=== PATIENT | male | born 1965 | race Caucasian/White ===

== ENCOUNTER 2017-01-23 12:33 | Emergency (ER) | payer BC ==
[2017-01-23 13:02] VITALS: BP 153/87; PULSE 84; RESP 18; TEMP 98
[2017-01-23] MEDS ORDERED: CLINDAMYCIN 150 MG CAP PO STA (13:36)
--- NOTE | 2017-01-23 13:36 | ED ---
General Adult HPI - General Chief complaint: Dental/Oral Stated complaint: Facial Swelling Time Seen by Provider: 01/23/17 13:15 Source: patient, RN notes reviewed Mode of arrival: ambulatory Limitations: no limitations - History of Present Illness Initial comments: 51-year-old male presents to emergency 5 chief complaint of left-sided facial swelling. Patient admits to a long history of dental problems and states she was recently placed on amoxicillin a few days ago and then they switched azithromycin the next day and he continues to have this facial swelling. Patient has been pain opening closing mouth. Patient denies difficulty closing mouth. He denies any pain to the back and he had fever chills. Patient states it just does not seem he still having a dental pain to the left upper teeth. He is scheduled to have them removed on Thursday. Patient states he hasn't had any other symptoms with this. Patient was concerned due to this findings they thought that he should be evaluated. Patient denies any recent fever, chills, shortness of breath, chest pain, back pain, abdominal pain, nausea vomiting, numbness or tingling, dysuria or hematuria, constipation or diarrhea, headaches or visual changes, or any other current symptoms. - Related Data Previous Rx's Medication Instructions Recorded Ipratropium/Albuterol Sulfate 2 puff INHALATION QID #1 inhaler 02/24/14 [Combivent Respimat Inhaler] predniSONE 20 mg PO BID #14 tab 02/24/14 Clindamycin [Cleocin] 450 mg PO Q8HR #90 capsule 01/23/17 Allergies Allergy/AdvReac Type Severity Reaction Status Date / Time No Known Allergies Allergy Verified 01/23/17 13:02 Review of Systems ROS Statement: Those systems with pertinent positive or pertinent negative responses have been documented in the HPI. ROS Other: All systems not noted in ROS Statement are negative. Past Medical History Past Medical History: COPD History of Any Multi-Drug Resistant Organisms: None Reported Past Surgical History: Cholecystectomy Additional Past Surgical History / Comment(s): cyst removed from hand Past Psychological History: No Psychological Hx Reported Smoking Status: Current every day smoker Past Alcohol Use History: None Reported Past Drug Use History: None Reported General Exam Limitations: no limitations General appearance: alert, in no apparent distress Head exam: Present: other (Patient appears to have swelling Under the left eye to the left cheek) Eye exam: Present: normal appearance, PERRL, EOMI. Absent: scleral icterus, conjunctival injection, periorbital swelling ENT exam: Present: normal exam, mucous membranes moist, other (Recorded dentition throughout, no abscess noted) Neck exam: Present: normal inspection. Absent: tenderness, meningismus, lymphadenopathy Respiratory exam: Present: normal lung sounds bilaterally. Absent: respiratory distress, wheezes, rales, rhonchi, stridor Cardiovascular Exam: Present: regular rate, normal rhythm, normal heart sounds. Absent: systolic murmur, diastolic murmur, rubs, gallop, clicks Neurological exam: Present: alert, oriented X3 Psychiatric exam: Present: normal affect, normal mood Skin exam: Present: warm, dry, intact, normal color. Absent: rash Course Vital Signs 01/23/17 13:00 Temperature 98.0 F Pulse Rate 84 Respiratory 18 Rate Blood Pressure 153/87 O2 Sat by Pulse 97 Oximetry Medical Decision Making - Medical Decision Making 51-year-old male presents for left-sided dental caries. This time we will start patient clindamycin. Discussed follow-up with his dentist we discussed care. We discussed return members in questions have been answered. He stated he understood and is in agreement with the plan. All questions have been answered at this time. He will be discharged home. Disposition Clinical Impression: Dental caries Disposition: HOME SELF-CARE Condition: Stable Instructions: Dental Caries (ED) Additional Instructions: Please use medication as discussed. Please follow up with family doctor if symptoms have not improved over the next two days. Please return to the emergency room if your symptoms increase or worsen or for any other concerns. Prescriptions: Clindamycin [Cleocin] 450 mg PO Q8HR #90 capsule Referrals: Elin Olson DO [Primary Care Provider] - 1-2 days Time of Disposition: 13:35
== END 2017-01-23 14:05 | disposition home or self-care (01) ==
LOC: EC 12:33
DX: K02.9 Dental caries, unspecified (principal); R22.0 Localized swelling, mass and lump, head; F17.200 Nicotine dependence, unspecified, uncomplicated
CPT/HCPCS: 99283

== ENCOUNTER 2017-02-06 09:15 | Day surgery (SDC) | payer BC ==
[2017-02-03 15:17] VITALS: BMI 26.9
[~2017-02-06 09:15] MED LIST: LACTATED RINGERS 1,000 ML IV SCH
[2017-02-06 10:37] VITALS: RESP 16; TEMP 97.2
[2017-02-06] MEDS ORDERED: LIDOCAINE 1% 20 ML VIAL (10MG/ML) FOR IV START INTRADERMA ONE (10:44)
[2017-02-06] MEDS ORDERED: MIDAZOLAM 2 MG/2 ML VIAL ONE (12:03)
[2017-02-06] MEDS ORDERED: PROPOFOL 10 MG/ML 20 ML VIAL IV ONE (12:03)
--- NOTE | 2017-02-06 12:11 | P.GSHP ---
History of Present Illness H&P Date: 02/06/17 Chief Complaint: Screening colonoscopy This a 51-year-old male referred from Elin Olson. Patient rents today for screening colonoscopy. Past Medical History Past Medical History: COPD History of Any Multi-Drug Resistant Organisms: None Reported Past Surgical History: Cholecystectomy Additional Past Surgical History / Comment(s): CYST REMOVED FROM RT HAND Past Anesthesia/Blood Transfusion Reactions: No Reported Reaction Smoking Status: Current every day smoker - Past Family History Father Family Medical History: Cancer Medications and Allergies Home Medications Medication Instructions Recorded Confirmed Type Clindamycin [Cleocin] 450 mg PO Q8HR #90 capsule 01/23/17 02/06/17 Rx Allergies Allergy/AdvReac Type Severity Reaction Status Date / Time No Known Allergies Allergy Verified 02/06/17 10:32 Surgical - Exam Vital Signs Temp Pulse Resp BP Pulse Ox 97.2 F L 67 16 143/88 97 02/06/17 10:36 02/06/17 10:36 02/06/17 10:36 02/06/17 10:36 02/06/17 10:36 - General well developed, no distress - Eyes PERRL - ENT normal pinna - Neck no masses - Respiratory normal expansion - Cardiovascular Rhythm: regular - Abdomen Abdomen: soft, non tender Assessment and Plan Plan: We'll perform screening colonoscopy.
--- NOTE | 2017-02-06 12:23 | P.OP ---
Date of Procedure: 02/06/17 Preoperative Diagnosis: Screening colonoscopy Postoperative Diagnosis: Diverticulosis Procedure(s) Performed: Colonoscopy Implants: Anesthesia: MAC Surgeon: Abiodun Lopez Pathology: none sent Condition: stable Disposition: PACU Indications for Procedure: Operative Findings: Description of Procedure: The patient's placed on the endoscopy table in the lateral position. He received IV sedation. Digital rectal exam was performed which revealed no abnormalities. The prostate was symmetric without nodules. The flexible colonoscope was then placed patient anus passed rotator colon. The ileocecal valve was visualized. Cecum, ascending and transverse colon appeared normal. In the descending and sigmoid colon there were diverticular changes. There is no evidence of diverticulitis. Scope was then brought back the rectum and this appeared normal. Scope was withdrawn for patient.
[2017-02-06 12:54] VITALS: BP 145/92; PULSE 77
== END 2017-02-06 13:03 | disposition home or self-care (01) ==
LOC: ORWHC2ENDO 09:15
PROVIDERS: ATTEND Surgery
DX: Z12.11 Encounter for screening for malignant neoplasm of colon (principal); K57.30 Diverticulosis of large intestine without perforation or abscess without bleeding; J44.9 Chronic obstructive pulmonary disease, unspecified; F17.200 Nicotine dependence, unspecified, uncomplicated; Z79.2 Long term (current) use of antibiotics
CPT/HCPCS: J2250; J2704; G0121

== ENCOUNTER 2017-11-28 10:17 | Emergency (ER) | payer BC, OTHER ==
[2017-11-28 10:23] VITALS: BP 164/111; PULSE 90; RESP 18; TEMP 98.3
== END 2017-11-28 10:45 | disposition home or self-care (01) ==
LOC: EC 10:17

== ENCOUNTER 2018-07-05 13:11 | Emergency (ER) | payer BC ==
[2018-07-05 13:24] VITALS: TEMP 97.9
--- NOTE | 2018-07-05 14:59 | ED ---
General Adult HPI - General Chief complaint: Back Pain/Injury Stated complaint: back pain Time Seen by Provider: 07/05/18 13:54 Source: patient, RN notes reviewed, old records reviewed Mode of arrival: ambulatory Limitations: no limitations - History of Present Illness Initial comments: 50-year-old male patient passed no history of reported lumbar disc herniation/ chronic lumbar back pain, COPD presents to ED with acute back pain. Patient reports that this morning when he went to bend over to tie his shoes prior to going to work he felt a reported "snap" in his lumbar spine. Patient states that he then began to have pain in his lumbar spine. Patient states that he has had waxing and waning chronic back pain for approximately 20 years, denies any surgeries on his back. Patient denies any acute loss of bowel or bladder control, denies any fevers chills, denies history of IV drug use patient denies any new onset weakness, paresthesias. Systemic: Pt denies fatigue, fever/chills, rash. Pt denies weakness, night sweats, weight loss. Neuro: Pt denies headache, visual disturbances, syncope or pre-syncope. HEENT: Pt denies ocular discharge or irritation, otalgia, rhinorrhea, pharyngitis or notable lymphadenopathy. Cardiopulmonary: Pt denies chest pain, SOB, heart palpitations, dyspnea on exertion. Abdominal/GI: Pt denies abdominal pain, n/v/d. : Pt denies dysuria, burning w/ urination, frequency/urgency. Denies new onset urinary or bowel incontinence. MSK: Pt denies loss of strength or function in extremities. Neuro: Pt denies new onset weakness, paresthesias. - Related Data Previous Rx's Medication Instructions Recorded Clindamycin [Cleocin] 450 mg PO Q8HR #90 capsule 01/23/17 Aspirin [Adult Low Dose Aspirin EC] 81 mg PO Q24HR 30 Days #30 07/05/18 tablet. amLODIPine [Norvasc] 5 mg PO DAILY 30 Days #30 tab 07/05/18 Allergies Allergy/AdvReac Type Severity Reaction Status Date / Time No Known Allergies Allergy Verified 07/05/18 13:24 Review of Systems ROS Statement: Those systems with pertinent positive or pertinent negative responses have been documented in the HPI. ROS Other: All systems not noted in ROS Statement are negative. Past Medical History Past Medical History: COPD History of Any Multi-Drug Resistant Organisms: None Reported Past Surgical History: Cholecystectomy Additional Past Surgical History / Comment(s): cyst removed from hand Past Psychological History: No Psychological Hx Reported Smoking Status: Current every day smoker Past Alcohol Use History: None Reported Past Drug Use History: Marijuana General Exam - General Exam Comments Initial Comments: Constitutional: NAD, AOX3, Pt has pleasant affect. HEENT: NC/AT, trachea midline, neck supple, no lymphadenopathy. Posterior pharynx non erythematous, without exudates. External ears appear normal, without discharge. Mucous membranes moist. Eyes PERRLA, EOM intact. There is no scleral icterus. No pallor noted. Cardiopulmonary: RRR, no murmurs, rubs or gallops, no JVD noted. Lungs CTAB in anterior and posterior darling. No peripheral edema. Abdominal exam: Abdomen soft and non-distended. Abdomen non-tender to palpation in all 4 quadrants. Bowel sounds active in LLQ. No hepatosplenomegaly. No ecchymosis Neuro: CN II-XII grossly intact. No nuchal rigidity. MSK: No cervical thoracic spinal or para spinal tenderness. Patient does have some midline mild lumbar back tenderness. No paralumbar tenderness. 5/5 strength in psoas and quadriceps. No posterior calf tenderness bilaterally, homans sign negative bilaterally. Posterior tibialis and radial pulse +1 bilaterally. Capillary refill <2 seconds. Sensation intact in upper and lower extremities. Pt ambulatory without difficulty. Limitations: no limitations Course Vital Signs 07/05/18 07/05/18 07/05/18 13:20 15:46 16:31 Temperature 97.9 F Pulse Rate 81 74 71 Respiratory 18 18 18 Rate Blood Pressure 153/99 174/99 178/97 O2 Sat by Pulse 99 98 98 Oximetry 07/05/18 07/05/18 07/05/18 17:00 17:27 18:15 Temperature Pulse Rate 71 67 65 Respiratory 18 18 18 Rate Blood Pressure 146/94 150/94 166/103 O2 Sat by Pulse 98 98 96 Oximetry 07/05/18 20:38 Temperature Pulse Rate 76 Respiratory 20 Rate Blood Pressure 168/111 O2 Sat by Pulse 96 Oximetry Medical Decision Making - Medical Decision Making 50-year-old male patient passed no history of reported lumbar disc herniation/ chronic lumbar back pain, COPD presents to ED with acute back pain. Patient reports that this morning when he went to bend over to tie his shoes prior to going to work he felt a reported "snap" in his lumbar spine. Patient states that he then began to have pain in his lumbar spine. Patient states that he has had waxing and waning chronic back pain for approximately 20 years, denies any surgeries on his back. Patient denies any acute loss of bowel or bladder control, denies any fevers chills, denies history of IV drug use patient denies any new onset weakness, paresthesias. Physical exam displayed: No cervical thoracic spinal or para spinal tenderness. Patient does have some midline mild lumbar back tenderness. No paralumbar tenderness. 5/5 strength in psoas and quadriceps. No posterior calf tenderness bilaterally, homans sign negative bilaterally. Posterior tibialis and radial pulse +1 bilaterally. Sensation intact in upper and lower extremities. Pt ambulatory without difficulty. Capillary refil <[address] revealed age-indeterminate compression fracture T12 vertebral body with 30% height loss and no retropulsion. Patient is not tender in this region. CT also revealed mild multilevel degenerative changes and lumbar spine, right paracentral disc herniation is suspected. Focal chronic dissection flap abdominal aorta seen at level above the renal arteries. Laboratory investigation revealed mild leukocytosis of 13, non-impressive CMP. Findings were explained patient in depth. Patient vital signs revealed initial mild hypertension which regressed to blood pressure 170s over 90s. Patient administered labetalol. Patient became normotensive. CT of thoracic aortic contrast was conducted. This revealed severe atherosclerotic changes in the infrarenal abdominal aorta with complete occlusion of the left common iliac artery noted. Patient became mildly hypertensive again, wasn't administered another dose of labetalol. Findings explained toPatient at length. Patient verbalizes understanding. Dr. Owens vascular surgeon was contacted by Dr. Severino Noonan attending physician. Recommendation was made for outpatient follow-up on Thursday. No anticoagulation. Pt verbalized understanding. Pt additionally referred to orthopedic surgeon for outpatient follow up. Pt verbalized understanding. Pt became mildly hypertensive again, was advised to stay funtil further control. Pt declined and left. Pt was discharged with amlodipine 5 mg, daily ASA. Patient to follow up with outpatient appointments as directed. Patient to follow with PCP in 1-2 days for continued management of blood pressure. Patient to return to ED if descends symptoms develop or if condition worsens in any way. Case discussed in depth with Dr. Noonan - Lab Data Result diagrams: 07/05/18 16:41 07/05/18 16:41 Lab Results 07/05/18 07/05/18 Range/Units 16:41 16:41 WBC 13.2 H (3.8-10.6) k/uL RBC 5.41 (4.30-5.90) m/uL Hgb 16.1 (13.0-17.5) gm/dL Hct 48.4 (39.0-53.0) % MCV 89.5 (80.0-100.0) fL MCH 29.7 (25.0-35.0) pg MCHC 33.2 (31.0-37.0) g/dL RDW 12.8 (11.5-15.5) % Plt Count 195 (150-450) k/uL Neutrophils % (Manual) 56 % Lymphocytes % (Manual) 38 % Monocytes % (Manual) 3 % Eosinophils % (Manual) 3 % Neutrophils # (Manual) 7.39 (1.3-7.7) k/uL Lymphocytes # (Manual) 5.02 H (1.0-4.8) k/uL Monocytes # (Manual) 0.40 (0-1.0) k/uL Eosinophils # (Manual) 0.40 (0-0.7) k/uL Nucleated RBCs 0 (0-0) /100 WBC Manual Slide Review Performed Reactive Lymphocytes Present RBC Morphology Normal Sodium 137 (137-145) mmol/L Potassium 4.6 (3.5-5.1) mmol/L Chloride 105 (98-107) mmol/L Carbon Dioxide 22 (22-30) mmol/L Anion Gap 10 mmol/L BUN 13 (9-20) mg/dL Creatinine 0.77 (0.66-1.25) mg/dL Est GFR (CKD-EPI)AfAm >90 (>60 ml/min/1.73 sqM) Est GFR (CKD-EPI)NonAf >90 (>60 ml/min/1.73 sqM) Glucose 98 (74-99) mg/dL Calcium 9.4 (8.4-10.2) mg/dL Total Bilirubin 0.6 (0.2-1.3) mg/dL AST 38 (17-59) U/L ALT 13 L (21-72) U/L Alkaline Phosphatase 74 (38-126) U/L Total Protein 7.0 (6.3-8.2) g/dL Albumin 4.2 (3.5-5.0) g/dL Disposition Clinical Impression: Atherosclerosis, Back pain Disposition: HOME SELF-CARE Instructions (If sedation given, give patient instructions): Acute Low Back Pain (ED), Chronic Back Pain (ED) Additional Instructions: Patient to adhere to previously discussed treatment plan and will take medication(s) as directed. Patient to follow up with PCP in 1-2 days. Patient to return to ED if symptoms do not improve. Prescriptions: amLODIPine [Norvasc] 5 mg PO DAILY 30 Days #30 tab Aspirin [Adult Low Dose Aspirin EC] 81 mg PO Q24HR 30 Days #30 tablet.dr Is patient prescribed a controlled substance at d/c from ED?: No Referrals: Elin Olson DO [Primary Care Provider] - 1-2 days Fletcher Owens MD [STAFF PHYSICIAN] - 1-2 days Chad Baca DO [Doctor of Osteopathic Medicine] - 1-2 days Time of Disposition: 20:12
[2018-07-05] MEDS ORDERED: KETOROLAC 60 MG/2 ML VIAL IM STA (15:11)
--- NOTE | 2018-07-05 15:50 | CT ---
EXAMINATION TYPE: CT lumbar spine wo con DATE OF EXAM: 07/05/2018 3:35 PM COMPARISON: None HISTORY: Low back pain after bending over today. CT DLP: 827 mGycm Automated exposure control for dose reduction was used. TECHNIQUE Unenhanced CT of the lumbar spine was performed. Bone and soft tissue window settings are submitted as well as coronal and sagittal reconstructions. FINDINGS: There are right-sided punctate nonobstructing renal calculi. Extensive atherosclerosis is s een of the abdominal aorta and its branches. Crescentic focal suprarenal dissection flap is seen post eriorly on image 30 and 29 above the level of the renal arteries within the abdominal aorta. There is no evidence of acute fracture or malalignment of the lumbar spine. Nonspecific sclerotic foc us is seen within the right iliac bone on image 96 of axial bone algorithm. There is a compression deformity of the T12 vertebral body. No retropulsion. This is approximately 30 % height loss. L1-L2: Normal disc space height. No disc herniation protrusion or central stenosis. No facet joint arthropathy. No evidence for foraminal encroachment. L2-L3: There is a broad-based disc bulge, facet arthropathy and ligamentum flavum buckling resulting in mild bilateral neural foraminal narrowing without spinal canal stenosis on CT. L3-L4: There is a broad-based disc bulge, facet arthropathy and ligamentum flavum buckling resulting in bilateral mild neural foraminal narrowing and suspected mild spinal canal stenosis. L4-L5: There is a broad-based disc bulge, facet arthropathy and ligamentum flavum buckling resulting in bilateral mild neural foraminal narrowing and suspected mild spinal canal stenosis. L5-S1: Vacuum disc disease extends along the posterior margin of the L5-S1 intervertebral disc and po sterior to the S1 vertebral body abutting the ventral thecal sac at this level. Intervertebral disc s pace narrowing is seen at this level as well as small posterior osteophytes and facet arthropathy cre ating moderate bilateral neural foraminal narrowing. No gross evidence of spinal canal stenosis. IMPRESSION: 1. Age indeterminant compression deformity of the T12 vertebral body with 30% height loss and no retr opulsion. No priors for comparison. Correlate with point tenderness to determine the acuity. MR could evaluate for bone marrow edema. 2. Mild multilevel degenerative disc disease of the lumbar spine. Right paracentral disc herniation i s suspected as there is vacuum disc disease extending along the anterior thecal sac at this level. MR could improve sensitivity for disc herniation.
[2018-07-05] MEDS ORDERED: SODIUM CHLORIDE 0.9% 1,000 ML IV STA (16:19)
[2018-07-05] MEDS ORDERED: LABETALOL 5 MG/ML VIAL MDV IVP STA (16:26)
[2018-07-05] MEDS ORDERED: LABETALOL SYRINGE 5 MG/ML IV ONE (17:00)
[2018-07-05 17:11] LABS: ALT 13 U/L (21-72); AST 38 U/L (17-59); Albumin 4.2 g/dL (3.5-5.0); Alkaline Phosphatase 74 U/L (38-126); Anion Gap 10 mmol/L; Blood Urea Nitrogen 13 mg/dL (9-20); Calcium 9.4 mg/dL (8.4-10.2); Carbon Dioxide 22 mmol/L (22-30); Chloride 105 mmol/L (98-107); Glucose 98 mg/dL (74-99); HCT 48.4 % (39.0-53.0); HGB 16.1 gm/dL (13.0-17.5); MCH 29.7 pg (25.0-35.0); MCHC 33.2 g/dL (31.0-37.0); MCV 89.5 fL (80.0-100.0); Mean Platelet Volume 6.6; Platelet Count 195 k/uL (150-450); Potassium 4.6 mmol/L (3.5-5.1); RBC 5.41 m/uL (4.30-5.90); RDW 12.8 % (11.5-15.5); Sodium 137 mmol/L (137-145); Total Bilirubin 0.6 mg/dL (0.2-1.3); WBC 13.2 k/uL (3.8-10.6)
[2018-07-05 17:54] LABS: Lymphocytes # (M) 5.02 k/uL (1.0-4.8); Neutrophils # (M) 7.39 k/uL (1.3-7.7); Neutrophils % (M) 56 %; Nucleated Red Blood Cells 0 /100 WBC (0-0); Reactive Lymphocytes Present; Total Cells Counted 100
[2018-07-05] MEDS ORDERED: LABETALOL SYRINGE 5 MG/ML IVP STA (18:36)
--- NOTE | 2018-07-05 18:44 | CT ---
EXAMINATION TYPE: CT angio thor/abd pel aorta DATE OF EXAM: 07/05/2018 COMPARISON: Same day CT lumbar spine study. HISTORY: Lower back pain CT DLP: 1275.4 mGycm. Automated Exposure Control for Dose Reduction was Utilized. CONTRAST: CTA scan of the thorax, abdomen and pelvis is performed without and with IV Contrast, patient injecte d with 100 mL of Isovue 370. Aneurysm protocol with 3-D reconstructed images created on an [employer] workstation and reviewed. FINDINGS: VASCULAR: Central pulmonary arteries show no suspicious filling defect. Ascending aorta measures up t o 3.9 cm in diameter at axial image 44 level of pulmonary artery bifurcation. There is normal three-v essel origin from aortic arch without significant plaque or stenosis. There is mild noncalcified plaq ue in the descending thoracic aorta. There is patent celiac artery, SMA, and bilateral single renal arteries. Beginning below renal arteri es there is severe mixed calcified and noncalcified plaque concentrically in the aorta with stenosis approaching near 50%. There is complete occlusion of the left common iliac artery at its origin throu gh entire segment with reconstitution shortly after branching into internal and external iliac arteri es. Moderate calcified plaque is seen in these branches and extending into left groin region at the f emoral artery level without significant stenosis identified. There is stenosis approaching near 50% i n the mid right common iliac artery with severe mixed plaque present. Moderate plaque extends into in ternal and external iliac arteries without significant stenosis. Moderate to severe plaque right comm on femoral artery is seen without significant stenosis. No linear hypodensity to suggest dissection i s seen. Patent NOEMI is not identified. LUNGS: Mild to moderate underlying emphysematous change is present most prominent in the lung apices. No suspicious focal consolidation is seen. There is no pleural effusion or pneumothorax seen bilat erally. The tracheobronchial tree is patent. MEDIASTINUM: There are no greater than 1 cm hilar or mediastinal lymph nodes. No cardiomegaly or pe ricardial effusion is seen. Minimal coronary artery calcification is seen which is noted marker for coronary artery disease OTHER: Prominent bilateral subareolar gynecomastia is noted. LIVER/GB: Gallbladder is not visualized and presumed surgically absent. PANCREAS: No significant abnormality is seen. SPLEEN: Heterogeneity of spleen is felt products of arterial timing or imaging. ADRENALS: No significant abnormality is seen. KIDNEYS: No significant abnormality is seen. BOWEL: Incidental normal-appearing appendix from the cecum is present. Evaluation of bowel is subopt imal secondary to lack of enteric contrast. Areas of mild wall thickening are present in left-sided b owel loops presumed product of poor distention. GENITAL ORGANS: Prostate gland is large in size bulging on bladder base. LYMPH NODES: No greater than 1cm abdominal or pelvic lymph nodes are appreciated. OSSEOUS STRUCTURES: Moderate disc space narrowing L5-S1 level is present. Mild multilevel spurring in the thoracic spine is seen. OTHER: No significant additional abnormality is seen. IMPRESSION: 1. Severe atherosclerotic change in the infrarenal abdominal aorta with complete occlusion of the lef t common iliac artery noted.
[2018-07-05] MEDS ORDERED: MORPHINE SULFATE 4 MG/ML SYRINGE IVP STA (19:12)
[2018-07-05] MEDS ORDERED: ONDANSETRON 4 MG/2 ML VIAL IVP STA (19:36)
[2018-07-05] MEDS ORDERED: amLODIPine 5 MG TAB PO STA (20:15)
[2018-07-05 20:39] VITALS: BP 168/111; PULSE 76; RESP 20
== END 2018-07-05 20:55 | disposition home or self-care (01) ==
LOC: EC 13:11
DX: I70.0 Atherosclerosis of aorta (principal); I74.5 Embolism and thrombosis of iliac artery; S22.089A Unspecified fracture of T11-T12 vertebra, initial encounter for closed fracture; I10 Essential (primary) hypertension; M47.896 Other spondylosis, lumbar region; D72.829 Elevated white blood cell count, unspecified; F17.200 Nicotine dependence, unspecified, uncomplicated; Z53.8 Procedure and treatment not carried out for other reasons; X50.1XXA Overexertion from prolonged static or awkward postures, initial encounter; Y92.009 Unspecified place in unspecified non-institutional (private) residence as the place of occurrence of the external cause; Y93.89 Activity, other specified
CPT/HCPCS: 36415; 80053; 85025; 72131; 71275; 74174; 99284; 96374; 96375 ×2; 96376; 96361 ×4; 96372; J2270; J2405; J1885; Q9967

== ENCOUNTER 2018-10-28 02:52 | Emergency (ER) | payer BC ==
[2018-10-28] MEDS ORDERED: KETOROLAC 60 MG/2 ML VIAL IM STA (03:33)
[2018-10-28] MEDS ORDERED: Acetaminophen-Codeine 300-30mg TAB PO STA (03:33)
[2018-10-28] MEDS ORDERED: DIAZEPAM 5 MG TAB PO STA (03:33)
--- NOTE | 2018-10-28 03:35 | ED ---
Back Pain HPI - General Chief Complaint: Back Pain/Injury Stated Complaint: Back pain Time Seen by Provider: 10/28/18 03:12 Source: patient, RN notes reviewed, old records reviewed Limitations: physical limitation - History of Present Illness Initial Comments: This is a 33-year-old male the ER for evaluation. Presents today for evaluation regarding back pain. Pain that began while doing some lifting at some work yesterday. No prior history of trauma. No fevers. No IV drug abuse. No recent travel history or sick contacts. No specific trauma. Patient states he woke up for this morning and had increased pain. The patient has been persistent with no modifying factors for tabletop patient did not take Motrin or Toradol. Patient is able to ambulate but does have pain. No loss of bowel or bladder. MD Complaint: back pain, back injury (Strain sprain) -: hour(s) Similar Symptoms Previously: Yes Place: home Radiation: none Severity: mild Severity scale (1-10): 1 Quality: aching Consistency: constant Improves With: immobilization Worsens With: movement Context: while lifting, turning/twisting Associated Symptoms: denies other symptoms - Related Data Previous Rx's Medication Instructions Recorded Clindamycin [Cleocin] 450 mg PO Q8HR #90 capsule 01/23/17 Aspirin [Adult Low Dose Aspirin EC] 81 mg PO Q24HR 30 Days #30 07/05/18 tablet. amLODIPine [Norvasc] 5 mg PO DAILY 30 Days #30 tab 07/05/18 Allergies Allergy/AdvReac Type Severity Reaction Status Date / Time No Known Allergies Allergy Verified 10/28/18 03:10 Review of Systems ROS Statement: Those systems with pertinent positive or pertinent negative responses have been documented in the HPI. ROS Other: All systems not noted in ROS Statement are negative. Past Medical History Past Medical History: COPD History of Any Multi-Drug Resistant Organisms: None Reported Past Surgical History: Cholecystectomy, Orthopedic Surgery Additional Past Surgical History / Comment(s): cyst removed from hand Past Psychological History: No Psychological Hx Reported Smoking Status: Former smoker Past Alcohol Use History: None Reported Past Drug Use History: None Reported General Exam - General Exam Comments Initial Comments: No neurological deficit Limitations: physical limitation General appearance: alert, in no apparent distress Head exam: Present: atraumatic, normocephalic, normal inspection Eye exam: Present: normal appearance, PERRL, EOMI. Absent: scleral icterus, conjunctival injection, periorbital swelling ENT exam: Present: normal exam, mucous membranes moist Neck exam: Present: normal inspection. Absent: tenderness, meningismus, lymphadenopathy Respiratory exam: Present: normal lung sounds bilaterally. Absent: respiratory distress, wheezes, rales, rhonchi, stridor Cardiovascular Exam: Present: regular rate, normal rhythm, normal heart sounds. Absent: systolic murmur, diastolic murmur, rubs, gallop, clicks GI/Abdominal exam: Present: soft, normal bowel sounds. Absent: distended, tenderness, guarding, rebound, rigid Extremities exam: Present: normal inspection, full ROM, normal capillary refill. Absent: tenderness, pedal edema, joint swelling, calf tenderness Back exam: Present: normal inspection Neurological exam: Present: alert, oriented X3, CN II-XII intact Psychiatric exam: Present: normal affect, normal mood Skin exam: Present: warm, dry, intact, normal color. Absent: rash Course Vital Signs 10/28/18 10/28/18 03:06 05:10 Temperature 97.5 F L 97.3 F L Pulse Rate 82 63 Respiratory 15 18 Rate Blood Pressure 120/79 127/89 O2 Sat by Pulse 99 99 Oximetry - Reevaluation(s) Reevaluation #1: Medical records reviewed Patient able to actively without difficulty Patient has pain control Medical Decision Making - Medical Decision Making 50 female the ER for evaluation of back pain. Back strain. X-rays negative, a she given pain control feeling better and can be discharged home - Radiology Data Radiology results: report reviewed (X-ray lumbosacral spine negative for traumatic injury), image reviewed Disposition Clinical Impression: Mechanical back pain, Mid back pain, Strain of lumbar region Disposition: HOME SELF-CARE Condition: Good Instructions (If sedation given, give patient instructions): Acute Low Back Pain (ED) Is patient prescribed a controlled substance at d/c from ED?: No Referrals: Elin Olson DO [Primary Care Provider] - 1-2 days
--- NOTE | 2018-10-28 03:47 | XR ---
EXAM: XR Lumbar Spine, 2 or 3 Views CLINICAL HISTORY: Pain TECHNIQUE: Frontal and lateral views of the lumbar spine. COMPARISON: No relevant prior studies available. FINDINGS: Vertebrae: Mild anterior wedge compression defect at T12, likely chronic Normal alignment. Disc spaces: Mild degenerative disc disease, worse at L5-S1. Soft tissues: Unremarkable. Vasculature: Calcified aorta. IMPRESSION: No acute findings.
[2018-10-28 05:11] VITALS: BP 127/89; PULSE 63; RESP 18; TEMP 97.3
== END 2018-10-28 05:10 | disposition home or self-care (01) ==
LOC: EC 02:52
DX: S39.012A Strain of muscle, fascia and tendon of lower back, initial encounter (principal); Z87.891 Personal history of nicotine dependence; X50.9XXA Other and unspecified overexertion or strenuous movements or postures, initial encounter; Y92.009 Unspecified place in unspecified non-institutional (private) residence as the place of occurrence of the external cause
CPT/HCPCS: 72110; 99284; 96372; J1885

== ENCOUNTER 2018-11-17 04:06 | Emergency (ER) | payer BC ==
[2018-11-17 04:24] VITALS: RESP 18
[2018-11-17] MEDS ORDERED: KETOROLAC 60 MG/2 ML VIAL IM STA (06:21)
[2018-11-17 07:16] VITALS: BP 112/78; PULSE 71; TEMP 98
--- NOTE | 2018-11-17 07:22 | ED ---
Back Pain HPI - General Chief Complaint: Back Pain/Injury Stated Complaint: Back Pain Time Seen by Provider: 11/17/18 06:00 Source: patient Limitations: physical limitation - History of Present Illness Initial Comments: This patient is a 53-year-old man who presents after he states he injured his back. The patient states he was bending to tie his shoes and then when he straightened he felt burning pain in his back. He states he had similar approximately 2 weeks ago and was seen here. He states that he was given an injection that helped and then . within a few days she was feeling better. Patient denies any weakness or numbness of the extremities. No change in bladder or bowel function. No impact to the back MD Complaint: back injury -: hour(s) Similar Symptoms Previously: Yes Place: home Radiation: none Severity: moderate Quality: aching Consistency: constant Improves With: immobilization Worsens With: movement Context: bending Associated Symptoms: denies other symptoms - Related Data Home Medications Medication Instructions Recorded Confirmed Fluticasone Furoate [Arnuity 1 puff INHALATION RT-DAILY 11/17/18 11/17/18 Ellipta] Umeclidinium Brm/Vilanterol Tr 1 puff INHALATION RT-DAILY 11/17/18 11/17/18 [Anoro Ellipta 62.5-25 Mcg INH] Previous Rx's Medication Instructions Recorded Aspirin [Adult Low Dose Aspirin EC] 81 mg PO Q24HR 30 Days #30 07/05/18 tablet. amLODIPine [Norvasc] 5 mg PO DAILY 30 Days #30 tab 07/05/18 Methocarbamol [Robaxin-750] 750 mg PO TID PRN #30 tablet 11/17/18 Allergies Allergy/AdvReac Type Severity Reaction Status Date / Time No Known Allergies Allergy Verified 11/17/18 07:28 Review of Systems ROS Statement: Those systems with pertinent positive or pertinent negative responses have been documented in the HPI. ROS Other: All systems not noted in ROS Statement are negative. Constitutional: Denies: fever, chills Respiratory: Denies: cough, dyspnea Cardiovascular: Denies: chest pain, palpitations Gastrointestinal: Denies: abdominal pain, nausea, vomiting, diarrhea Genitourinary: Denies: dysuria, frequency, hematuria Musculoskeletal: Reports: as per HPI, back pain Skin: Denies: rash Neurological: Denies: weakness, numbness, paresthesias Past Medical History Past Medical History: COPD History of Any Multi-Drug Resistant Organisms: None Reported Past Surgical History: Cholecystectomy, Orthopedic Surgery Additional Past Surgical History / Comment(s): cyst removed from hand Past Psychological History: No Psychological Hx Reported Smoking Status: Former smoker Past Alcohol Use History: None Reported Past Drug Use History: None Reported General Exam Limitations: physical limitation General appearance: alert, in no apparent distress GI/Abdominal exam: Present: soft. Absent: distended, tenderness, guarding, rebound, rigid, mass Extremities exam: Present: normal inspection, normal capillary refill. Absent: pedal edema, calf tenderness Back exam: Present: normal inspection, muscle spasm, paraspinal tenderness. Absent: CVA tenderness (R), CVA tenderness (L), vertebral tenderness Neurological exam: Present: reflexes normal. Absent: motor sensory deficit Skin exam: Present: warm, dry, intact, normal color. Absent: rash Course Vital Signs 11/17/18 11/17/18 04:18 06:30 Temperature 97.9 F 98 F Pulse Rate 89 71 Respiratory 18 18 Rate Blood Pressure 122/76 112/78 O2 Sat by Pulse 99 98 Oximetry Disposition Clinical Impression: Strain of lumbar region Disposition: HOME SELF-CARE Condition: Good Instructions (If sedation given, give patient instructions): Acute Low Back Pain (ED) Prescriptions: Methocarbamol [Robaxin-750] 750 mg PO TID PRN #30 tablet PRN Reason: pain Is patient prescribed a controlled substance at d/c from ED?: No Referrals: Elin Olson DO [Primary Care Provider] - 1-2 days
== END 2018-11-17 07:33 | disposition home or self-care (01) ==
LOC: EC 04:06
DX: S39.012A Strain of muscle, fascia and tendon of lower back, initial encounter (principal); J44.9 Chronic obstructive pulmonary disease, unspecified; Z79.51 Long term (current) use of inhaled steroids; Z87.891 Personal history of nicotine dependence; X58.XXXA Exposure to other specified factors, initial encounter
CPT/HCPCS: 99283; 96372; J1885

== ENCOUNTER 2018-12-07 17:38 | Emergency (ER) | payer BC ==
[2018-12-07 17:45] VITALS: BP 112/78; PULSE 92; RESP 18; TEMP 98.4
[2018-12-07] MEDS ORDERED: DIAZEPAM 5 MG/ML 2 ML INJ IM STA (18:34)
[2018-12-07] MEDS ORDERED: KETOROLAC 30 MG/ML 1 ML VIAL IM STA (18:34)
--- NOTE | 2018-12-07 19:03 | ED ---
Back Pain HPI - General Chief Complaint: Back Pain/Injury Stated Complaint: Pinched nerve in back Time Seen by Provider: 12/07/18 17:46 Source: patient Limitations: no limitations - History of Present Illness Initial Comments: Patient is a 53-year-old male presents emergency Department with low back pain. Patient reports that he has been diagnosed with a herniated disc in his lumbar vertebrae with an MRI. Patient reports that he sees an database management specialist. Patient reports back pain is a chronic issue for him and he develops intermittent acute pain. Patient reports lumbar and paraspinal tenderness with palpation. Patient reports the pain is alleviated when laying flat and exacerbated with flexion and bilateral rotation. Patient denies taking medication to alleviate the pain. Patient states that he uses Flexeril occasionally with mixed improvement. Patient denies saddle paresthesia or urinary and bowel incontinence. Patient states the pain does not radiate to either lower extremity. No reflex symptoms. - Related Data Home Medications Medication Instructions Recorded Confirmed Fluticasone Furoate [Arnuity 1 puff INHALATION RT-DAILY 11/17/18 11/17/18 Ellipta] Umeclidinium Brm/Vilanterol Tr 1 puff INHALATION RT-DAILY 11/17/18 11/17/18 [Anoro Ellipta 62.5-25 Mcg INH] Previous Rx's Medication Instructions Recorded Aspirin [Adult Low Dose Aspirin EC] 81 mg PO Q24HR 30 Days #30 07/05/18 tablet. amLODIPine [Norvasc] 5 mg PO DAILY 30 Days #30 tab 07/05/18 Methocarbamol [Robaxin-750] 750 mg PO TID PRN #30 tablet 11/17/18 Cyclobenzaprine [Flexeril] 10 mg PO TID PRN #15 tab 12/07/18 Allergies Allergy/AdvReac Type Severity Reaction Status Date / Time No Known Allergies Allergy Verified 12/07/18 17:45 Review of Systems ROS Statement: Those systems with pertinent positive or pertinent negative responses have been documented in the HPI. ROS Other: All systems not noted in ROS Statement are negative. Past Medical History Past Medical History: COPD History of Any Multi-Drug Resistant Organisms: None Reported Past Surgical History: Cholecystectomy, Orthopedic Surgery Additional Past Surgical History / Comment(s): cyst removed from hand. vascular surgery Past Psychological History: No Psychological Hx Reported Smoking Status: Former smoker Past Alcohol Use History: None Reported Past Drug Use History: None Reported General Exam Limitations: no limitations General appearance: alert, in no apparent distress Head exam: Present: atraumatic, normocephalic, normal inspection Eye exam: Present: normal appearance, PERRL, EOMI Pupils: Present: normal accommodation ENT exam: Present: normal exam, normal oropharynx, mucous membranes moist, TM's normal bilaterally, normal external ear exam Neck exam: Present: normal inspection, full ROM Respiratory exam: Present: normal lung sounds bilaterally Cardiovascular Exam: Present: regular rate, normal rhythm, normal heart sounds Extremities exam: Present: normal inspection, full ROM, normal capillary refill. Absent: calf tenderness Back exam: Present: normal inspection, tenderness (Lumbar with palpation), paraspinal tenderness (Right lumbar region). Absent: CVA tenderness (R), CVA tenderness (L) Neurological exam: Present: alert, oriented X3 Psychiatric exam: Present: normal affect, normal mood Skin exam: Present: warm, intact, normal color Course Vital Signs 12/07/18 17:43 Temperature 98.4 F Pulse Rate 92 Respiratory 18 Rate Blood Pressure 112/78 O2 Sat by Pulse 99 Oximetry Medical Decision Making - Medical Decision Making Patient is a 53-year-old male presents emergency Department with low back pain. Patient was given Valium, Toradol and Lidoderm patch. On reevaluation the patient reports that he feels much better and is able to ambulate without much difficulty. Patient reports the pain is more manageable. Patient advised to follow-up with orthopedics. Patient advised not to drive or operate heavy machinery when taking Flexeril. Strict return parameters were thoroughly discussed with patient who is understanding and agreeable. Case discussed with physician. Disposition Clinical Impression: Mechanical back pain Disposition: HOME SELF-CARE Condition: Stable Instructions (If sedation given, give patient instructions): Acute Low Back Pain (ED) Additional Instructions: Please follow-up with orthopedics. Please return to emergency department if symptoms worsen. Please take prescribed medication as directed. Prescriptions: Cyclobenzaprine [Flexeril] 10 mg PO TID PRN #15 tab PRN Reason: Muscle Spasm Is patient prescribed a controlled substance at d/c from ED?: No Referrals: Elin Olson DO [Primary Care Provider] - 1-2 days Luis Cain MD [STAFF PHYSICIAN] - 1-2 days
[2018-12-07] MEDS ORDERED: LIDOCAINE 5% PATCH TOPICAL STA (19:20)
== END 2018-12-07 19:41 | disposition home or self-care (01) ==
LOC: EC 17:38
DX: M54.5 Low back pain (principal); J44.9 Chronic obstructive pulmonary disease, unspecified; Z87.891 Personal history of nicotine dependence; Z79.51 Long term (current) use of inhaled steroids
CPT/HCPCS: 99283; 96372 ×2; J3360; J1885

== ENCOUNTER 2019-04-13 16:48 | Emergency (ER) | payer BC ==
[2019-04-13] MEDS ORDERED: KETOROLAC 60 MG/2 ML VIAL IM STA (17:01)
[2019-04-13] MEDS ORDERED: CYCLOBENZAPRINE 10MG STARTER 3 TAB BTL PO STA (17:01)
--- NOTE | 2019-04-13 17:04 | ED ---
Back Pain HPI - General Chief Complaint: Back Pain/Injury Stated Complaint: LOWER BACK PAIN Time Seen by Provider: 04/13/19 16:54 Source: patient Limitations: no limitations - History of Present Illness Initial Comments: 53-year-old male presenting to ERfor chief complaint of bilateral low back pain. Patient states he has chronic back pain. Patient states he had previous disc herniations. Patient states that when shuffling he felt low back pain bilaterally stretching across the back. Patient states that he stopped shoveling. Patient states the pain as per persistent now for 2-3 days. Patient states that he is able to walk denies any weakness delays loss of sensation. Denies urinary retention loss of bowel bladder control patient doesn't follow strict traumas. Denies IV drug use fever or History of cancer. Patient states movement increases the pain. Patient denies chest pain upper back pain or urinary symptoms. Remaining review of system negative. Upon arrival patient appears well no signs of acute distress - Related Data Home Medications Medication Instructions Recorded Confirmed Fluticasone Furoate [Arnuity 1 puff INHALATION RT-DAILY 11/17/18 11/17/18 Ellipta] Umeclidinium Brm/Vilanterol Tr 1 puff INHALATION RT-DAILY 11/17/18 11/17/18 [Anoro Ellipta 62.5-25 Mcg INH] Previous Rx's Medication Instructions Recorded Aspirin [Adult Low Dose Aspirin EC] 81 mg PO Q24HR 30 Days #30 07/05/18 tablet. amLODIPine [Norvasc] 5 mg PO DAILY 30 Days #30 tab 07/05/18 Methocarbamol [Robaxin-750] 750 mg PO TID PRN #30 tablet 11/17/18 Cyclobenzaprine [Flexeril] 10 mg PO TID PRN #15 tab 12/07/18 Cyclobenzaprine [Flexeril] 10 mg PO TID PRN 7 Days #21 tab 04/13/19 Ibuprofen 800 mg PO Q8H PRN 7 Days #21 tablet 04/13/19 Allergies Allergy/AdvReac Type Severity Reaction Status Date / Time No Known Allergies Allergy Verified 04/13/19 16:53 Review of Systems ROS Statement: Those systems with pertinent positive or pertinent negative responses have been documented in the HPI. ROS Other: All systems not noted in ROS Statement are negative. Past Medical History Past Medical History: COPD Additional Past Medical History / Comment(s): back pain History of Any Multi-Drug Resistant Organisms: None Reported Past Surgical History: Cholecystectomy, Orthopedic Surgery Additional Past Surgical History / Comment(s): cyst removed from hand. vascular surgery Past Psychological History: No Psychological Hx Reported Smoking Status: Former smoker Past Alcohol Use History: None Reported Past Drug Use History: None Reported General Exam - General Exam Comments Initial Comments: General: The patient is awake and alert, in no distress, and does not appear acutely ill. Eye: Pupils are equal, round and reactive to light, extra-ocular movements are intact. No nystagmus. There is normal conjunctiva bilaterally. No signs of icterus. Cardiovascular: There is a regular rate and rhythm. No murmur, rub or gallop is appreciated. Respiratory: Lungs are clear to auscultation, respirations are non-labored, breath sounds are equal. No wheezes, stridor, rales, or rhonchi. Gastrointestinal: [Soft, non-distended, non-tender abdomen without masses or organomegaly noted. There is no rebound or guarding present. No CVA tenderness. Bowel sounds are unremarkable.] Musculoskeletal: Normal inspection cervicothoracic lumbar spine. No midline tenderness. Paravertebral tenderness. Like over the lumbar spine. No skin abnormalities or rashes. Negative straight leg raise. +2 out of 5 deep tendon reflexes of the patella. Normal ROM, no tenderness. Strength 5/5 of the lower extremity bilaterally. Sensation intact of the lower extremity bilaterally. Radial and DP pulses equal bilaterally 2+. Neurological: A&O x 3. CN II-XII intact grossly, There are no obvious motor or sensory deficits. Coordination appears grossly intact. Speech is normal. Skin: Skin is warm and dry and no rashes or lesions are noted. Psychiatric: Cooperative, appropriate mood & affect, normal judgment. Limitations: no limitations Course Vital Signs 04/13/19 04/13/19 16:50 17:17 Temperature 98.0 F 97.7 F Pulse Rate 85 81 Respiratory 18 20 Rate Blood Pressure 129/81 108/80 O2 Sat by Pulse 98 97 Oximetry Medical Decision Making - Medical Decision Making Detail male presented for back pain after shoveling. Minimal midline tenderness. Mostly paravertebral. No significant radicular symptoms. Patient has no history of direct trauma or fall. Patient is palpable muscle spasm linked a.m. he will be discharged with a muscle relaxer and anti-inflammatory medications. Return parameters were discussed recent verbalized understanding and was discharged appearing well after discussing case with Dr. Roach Disposition Clinical Impression: Low back strain, Acute exacerbation of chronic low back pain Disposition: HOME SELF-CARE Condition: Good Instructions (If sedation given, give patient instructions): Acute Low Back Pain (ED) Additional Instructions: Please use medication as discussed. Please follow-up with family doctor in the next 2 days.. Please return to emergency room if the symptoms increase or worsen or for any other concerns. Prescriptions: Cyclobenzaprine [Flexeril] 10 mg PO TID PRN 7 Days #21 tab PRN Reason: Muscle Spasm Ibuprofen 800 mg PO Q8H PRN 7 Days #21 tablet PRN Reason: Pain Is patient prescribed a controlled substance at d/c from ED?: No Referrals: Elin Olson DO [Primary Care Provider] - 1-2 days Time of Disposition: 17:03
[2019-04-13 17:18] VITALS: BP 108/80; PULSE 81; RESP 20; TEMP 97.7
== END 2019-04-13 17:22 | disposition home or self-care (01) ==
LOC: EC 16:48
DX: S39.012A Strain of muscle, fascia and tendon of lower back, initial encounter (principal); G89.29 Other chronic pain; J44.9 Chronic obstructive pulmonary disease, unspecified; Z87.891 Personal history of nicotine dependence; Z79.51 Long term (current) use of inhaled steroids; Z79.899 Other long term (current) drug therapy; X58.XXXA Exposure to other specified factors, initial encounter; Y93.H1 Activity, digging, shoveling and raking
CPT/HCPCS: 99283; 96372; J1885

== ENCOUNTER 2021-02-18 13:34 | Emergency (ER) | payer BC, OTHER ==
[2021-02-18 14:43] VITALS: RESP 18; TEMP 97.9
--- NOTE | 2021-02-18 16:29 | ED ---
Eye Problem HPI - General Chief complaint: Eye Problems Stated complaint: R eye irritation Time Seen by Provider: 02/18/21 16:14 Source: patient, RN notes reviewed Mode of arrival: ambulatory Limitations: no limitations - History of Present Illness Initial comments: 55-year-old well-appearing male patient, alert and oriented 4, presents to the emergency room with complaints of a possible foreign body in his right eye. Patient states that he was outside cutting the grass and he started to rub his eye and has been increasing in pain. He states it is 10 out of 10. His tetanus shot is up-to-date. He has a history of COPD. MD chief complaint: eye pain, eye redness -: hour(s) (5) Onset Description: sudden Location: right eye Place: home If Injury: other (Possible foreign body) Eye Symptoms: itching Severity scale (1-10): 10 Consistency: constant Context: other (Cutting the grass had something in his eye) - Related Data Patient Tetanus UTD: Yes Home Medications Medication Instructions Recorded Confirmed Fluticasone Furoate [Arnuity 1 puff INHALATION RT-DAILY 11/17/18 11/17/18 Ellipta] Umeclidinium Brm/Vilanterol Tr 1 puff INHALATION RT-DAILY 11/17/18 11/17/18 [Anoro Ellipta 62.5-25 Mcg INH] Previous Rx's Medication Instructions Recorded Aspirin [Adult Low Dose Aspirin EC] 81 mg PO Q24HR 30 Days #30 07/05/18 tablet. amLODIPine [Norvasc] 5 mg PO DAILY 30 Days #30 tab 07/05/18 Methocarbamol [Robaxin-750] 750 mg PO TID PRN #30 tablet 11/17/18 Cyclobenzaprine [Flexeril] 10 mg PO TID PRN #15 tab 12/07/18 Cyclobenzaprine [Flexeril] 10 mg PO TID PRN 7 Days #21 tab 04/13/19 Ibuprofen 800 mg PO Q8H PRN 7 Days #21 tablet 04/13/19 Allergies Allergy/AdvReac Type Severity Reaction Status Date / Time No Known Allergies Allergy Verified 02/18/21 14:38 Review of Systems ROS Statement: Those systems with pertinent positive or pertinent negative responses have been documented in the HPI. ROS Other: All systems not noted in ROS Statement are negative. Past Medical History Past Medical History: COPD Additional Past Medical History / Comment(s): back pain History of Any Multi-Drug Resistant Organisms: None Reported Past Surgical History: Cholecystectomy, Orthopedic Surgery Additional Past Surgical History / Comment(s): cyst removed from hand. vascular surgery Past Psychological History: No Psychological Hx Reported Smoking Status: Current every day smoker Past Alcohol Use History: None Reported Past Drug Use History: None Reported General Exam Limitations: no limitations General appearance: alert, in no apparent distress Head exam: Present: atraumatic, normocephalic, normal inspection Eye exam: Present: EOMI, conjunctival injection. Absent: periorbital swelling, periorbital tenderness Neck exam: Present: full ROM Respiratory exam: Present: wheezes (Right upper lobe) Cardiovascular Exam: Present: regular rate, normal rhythm, normal heart sounds. Absent: systolic murmur, diastolic murmur, rubs, gallop, clicks Neurological exam: Present: alert, oriented X3 Psychiatric exam: Present: normal affect, normal mood Skin exam: Present: warm, dry, intact, normal color. Absent: rash, cyanosis, diaphoretic, petechiae, pallor Course Vital Signs 02/18/21 14:41 Temperature 97.9 F Pulse Rate 91 Respiratory 18 Rate Blood Pressure 162/115 O2 Sat by Pulse 97 Oximetry Procedures - Forgein Body Removal Eye Site: Right Anesthetic Used: Proparacaine Eye Exam Technique: Chacon Lamp, Fluorescein Foreign Body Suspected: Other Forgein Body Removal Technique: Cotton Swab Remaining Debris: No Patient Tolerated: well Medical Decision Making - Medical Decision Making There is a small foreign body at 6:00 on the cornea that was removed. There is no evidence of corneal abrasion. Patient will be discharged home to follow up with his primary care doctor. Return to the emergency room with any new or worsening symptoms. His tetanus shot is up-to-date. Disposition Clinical Impression: Eye foreign body Disposition: HOME SELF-CARE Condition: Good Instructions (If sedation given, give patient instructions): Eye Foreign Body (ED) Additional Instructions: Return to the emergency room with any new or worsening symptoms including pain, or visual changes. Her blood pressure is elevated in the emergency room today please discuss this with the primary care doctor. One elevated reading does not mean you have hypertension. Is patient prescribed a controlled substance at d/c from ED?: No Referrals: Elin Olson DO [Primary Care Provider] - 1-2 days Time of Disposition: 16:47
[2021-02-18] MEDS ORDERED: PROPARACAINE 0.5% OPHTH DROPS 15 ML BTL RIGHT EYE SCH (16:30)
[2021-02-18] MEDS ORDERED: FLUORESCEIN STRIPS 1 MG STRIP RIGHT EYE ONE (16:36)
[2021-02-18 17:32] VITALS: BP 172/93; PULSE 83
== END 2021-02-18 17:30 | disposition home or self-care (01) ==
LOC: EC 13:34
DX: T15.00XA Foreign body in cornea, unspecified eye, initial encounter (principal); J44.9 Chronic obstructive pulmonary disease, unspecified; F17.200 Nicotine dependence, unspecified, uncomplicated; Z79.51 Long term (current) use of inhaled steroids; W45.8XXA Other foreign body or object entering through skin, initial encounter; Y93.89 Activity, other specified; Y92.096 Garden or yard of other non-institutional residence as the place of occurrence of the external cause
CPT/HCPCS: 65220; 99283

== ENCOUNTER 2021-02-23 10:49 | Emergency (ER) | payer BC, OTHER ==
[2021-02-23] MEDS ORDERED: SODIUM CHLORIDE 0.9% 1,000 ML IV STA (11:28)
--- NOTE | 2021-02-23 11:52 | XR ---
Removal of the lingula. There are EXAMINATION TYPE: XR chest 2V DATE OF EXAM: 02/23/2021 COMPARISON: 02/24/2014 HISTORY: Shortness of breath TECHNIQUE: Frontal and lateral views of the chest are obtained. FINDINGS: Scattered senescent parenchymal changes noted. Hyperinflation compatible with COPD. No evidence for infiltrate. No evidence for atelectasis. Heart size is stable. Mediastinal structures are stable and grossly unremarkable. No evidence for hilar prominence. Degenerative changes dorsal spine. IMPRESSION: 1. No evidence for acute pulmonary disease.
[2021-02-23 11:57] LABS: HCT 49.5 % (39.0-53.0); HGB 17.9 gm/dL (13.0-17.5); MCH 31.6 pg (25.0-35.0); MCHC 36.1 g/dL (31.0-37.0); MCV 87.6 fL (80.0-100.0); Mean Platelet Volume 8.2; Platelet Count 251 k/uL (150-450); RBC 5.65 m/uL (4.30-5.90); RDW 12.9 % (11.5-15.5); WBC 14.8 k/uL (3.8-10.6)
[2021-02-23 12:04] LABS: ALT 21 U/L (4-49); AST 28 U/L (17-59); African American GFR (CKD) >90 (>60 ml/min/1.73 sqM); Albumin 4.6 g/dL (3.5-5.0); Alkaline Phosphatase 85 U/L (38-126); Anion Gap 10 mmol/L; Blood Urea Nitrogen 13 mg/dL (9-20); Calcium 10.1 mg/dL (8.4-10.2); Carbon Dioxide 24 mmol/L (22-30); Chloride 98 mmol/L (98-107); Glucose 113 mg/dL (74-99); Non-African American GFR(CKD) >90 (>60 ml/min/1.73 sqM); Potassium 4.4 mmol/L (3.5-5.1); Sodium 132 mmol/L (137-145); Total Bilirubin 0.7 mg/dL (0.2-1.3); Total Protein 7.9 g/dL (6.3-8.2)
[2021-02-23 12:16] LABS: Band Neutrophils % 3 %; Eosinophils # (M) 0.44 k/uL (0-0.7); Lymphocytes # (M) 2.96 k/uL (1.0-4.8); Metamyelocytes % 2 %; Monocytes # (M) 1.04 k/uL (0-1.0); Neutrophils % (M) 65 %; Nucleated Red Blood Cells 0 /100 WBC (0-0); Polychromasia Present; Total Cells Counted 100
[2021-02-23 12:21] LABS: Appearance,Urine Clear (Clear); Bilirubin,Urine Negative (Negative); Blood,Urine Negative (Negative); Color,Urine Light Yellow; Glucose,Urine (UA) Negative (Negative); Ketones,Urine Negative (Negative); Leukocyte Esterase,Urine Negative (Negative); Nitrite,Urine Negative (Negative); PH, Urine 5.5 (5.0-8.0); Protein,Urine Negative (Negative); Specific Gravity,Urine 1.005 (1.001-1.035); Urobilinogen,Urine <2.0 mg/dL (<2.0)
[2021-02-23 12:23] VITALS: RESP 20
--- NOTE | 2021-02-23 12:46 | ED ---
Dizziness HPI - General Chief Complaint: Dizziness Stated Complaint: Light headed Time Seen by Provider: 02/23/21 11:06 Source: patient, RN notes reviewed Mode of arrival: ambulatory Limitations: no limitations - History of Present Illness Initial Comments: Patient is a 55-year-old male that presents to the emergency department complaining of dizziness for the past several days. He notes that he started a new blood pressure medication on Thursday. He notes that since starting medication is been feeling more lightheaded and dizzy than usual. He notes that he was seen here on Thursday for a foreign body in the eye or his blood pressure was elevated in the 190s. He denied any issues or complaints this time. He notes that he drinks plenty water is vaccinated. He was otherwise a well- appearing 55-year-old male. He denied any aggravating or alleviating factors for the dizziness. He denied chest pain shortness of breath headache nausea vomiting diarrhea constipation fever fatigue chills. - Related Data Home Medications Medication Instructions Recorded Confirmed Aspirin [Adult Low Dose Aspirin EC] 81 mg PO DAILY 02/23/21 02/23/21 Lisinopril-Hctz 10-12.5 mg 1 tab PO DAILY 02/23/21 02/23/21 [Zestoretic 10-12.5] Allergies Allergy/AdvReac Type Severity Reaction Status Date / Time No Known Allergies Allergy Verified 02/23/21 12:03 Review of Systems ROS Statement: Those systems with pertinent positive or pertinent negative responses have been documented in the HPI. ROS Other: All systems not noted in ROS Statement are negative. Past Medical History Past Medical History: COPD, Hypertension Additional Past Medical History / Comment(s): back pain History of Any Multi-Drug Resistant Organisms: None Reported Past Surgical History: Cholecystectomy, Orthopedic Surgery Additional Past Surgical History / Comment(s): cyst removed from hand. vascular surgery Past Psychological History: No Psychological Hx Reported Smoking Status: Current every day smoker Past Alcohol Use History: None Reported Past Drug Use History: None Reported General Exam Limitations: no limitations General appearance: alert, in no apparent distress Head exam: Present: atraumatic, normocephalic, normal inspection Eye exam: Present: normal appearance, PERRL, EOMI. Absent: scleral icterus, conjunctival injection, periorbital swelling ENT exam: Present: normal exam, mucous membranes moist Neck exam: Present: normal inspection Respiratory exam: Present: normal lung sounds bilaterally. Absent: respiratory distress, wheezes, rales, rhonchi, stridor Cardiovascular Exam: Present: regular rate, normal rhythm, normal heart sounds. Absent: systolic murmur, diastolic murmur, rubs, gallop, clicks GI/Abdominal exam: Present: soft, normal bowel sounds. Absent: distended, tenderness, guarding, rebound, rigid Extremities exam: Present: normal inspection, full ROM, normal capillary refill. Absent: tenderness, pedal edema, joint swelling, calf tenderness Neurological exam: Present: alert, oriented X3 Psychiatric exam: Present: normal affect, normal mood Skin exam: Present: warm, dry, intact, normal color. Absent: rash Course Vital Signs 02/23/21 02/23/21 10:53 12:22 Temperature 98.2 F Pulse Rate 100 81 Respiratory 18 20 Rate Blood Pressure 138/97 127/98 O2 Sat by Pulse 98 96 Oximetry EKG Findings - EKG Comments: EKG Findings:: Ventricular rate 96 bpm, MN interval 134 ms, QRS duration 84 ms, QTC 409 ms, PRT axes 38/48/16. Normal sinus rhythm, normal ECG. Medical Decision Making - Medical Decision Making 55-year-old male complaining of dizziness for the past few days after starting a new blood pressure medication. Labs, 1 L normal saline, chest x-ray, EKG, residential monitor, Covid test ordered. Labs: White blood cells 14.8 hemoglobin 17.9 sodium 132 urine unremarkable Chest x-ray negative for any acute process. EKG within normal limits. Troponin negative. Patient's labs show mild dehydration pattern. Case discussed with Dr. Bentley outpatient discharge home with follow-up primary care and discuss any concerning questions or medications. - Lab Data Result diagrams: 02/23/21 11:35 02/23/21 11:35 Lab Results 02/23/21 02/23/21 02/23/21 Range/Units 11:35 11:35 11:35 WBC 14.8 H (3.8-10.6) k/uL RBC 5.65 (4.30-5.90) m/uL Hgb 17.9 H (13.0-17.5) gm/dL Hct 49.5 (39.0-53.0) % MCV 87.6 (80.0-100.0) fL MCH 31.6 (25.0-35.0) pg MCHC 36.1 (31.0-37.0) g/dL RDW 12.9 (11.5-15.5) % Plt Count 251 (150-450) k/uL MPV 8.2 Neutrophils % (Manual) 65 % Band Neuts % (Manual) 3 % Lymphocytes % (Manual) 20 % Monocytes % (Manual) 7 % Eosinophils % (Manual) 3 % Metamyelocytes % 2 % Neutrophils # (Manual) 10.00 H (1.3-7.7) k/uL Lymphocytes # (Manual) 2.96 (1.0-4.8) k/uL Monocytes # (Manual) 1.04 H (0-1.0) k/uL Eosinophils # (Manual) 0.44 (0-0.7) k/uL Metamyelocytes # (Man) 0.30 H (0) k/uL Nucleated RBCs 0 (0-0) /100 WBC Polychromasia Present Sodium 132 L (137-145) mmol/L Potassium 4.4 (3.5-5.1) mmol/L Chloride 98 (98-107) mmol/L Carbon Dioxide 24 (22-30) mmol/L Anion Gap 10 mmol/L BUN 13 (9-20) mg/dL Creatinine 0.77 (0.66-1.25) mg/dL Est GFR (CKD-EPI)AfAm >90 (>60 ml/min/1.73 sqM) Est GFR (CKD-EPI)NonAf >90 (>60 ml/min/1.73 sqM) Glucose 113 H (74-99) mg/dL Calcium 10.1 (8.4-10.2) mg/dL Total Bilirubin 0.7 (0.2-1.3) mg/dL AST 28 (17-59) U/L ALT 21 (4-49) U/L Alkaline Phosphatase 85 (38-126) U/L Troponin I <0.012 (0.000-0.034) ng/mL Total Protein 7.9 (6.3-8.2) g/dL Albumin 4.6 (3.5-5.0) g/dL Urine Color Urine Appearance (Clear) Urine pH (5.0-8.0) Ur Specific [place] (1.001-1.035) Urine Protein (Negative) Urine Glucose (UA) (Negative) Urine Ketones (Negative) Urine Blood (Negative) Urine Nitrite (Negative) Urine Bilirubin (Negative) Urine Urobilinogen (<2.0) mg/dL Ur Leukocyte Esterase (Negative) Coronavirus (PCR) (Not Detectd) 02/23/21 02/23/21 Range/Units 12:01 12:17 WBC (3.8-10.6) k/uL RBC (4.30-5.90) m/uL Hgb (13.0-17.5) gm/dL Hct (39.0-53.0) % MCV (80.0-100.0) fL MCH (25.0-35.0) pg MCHC (31.0-37.0) g/dL RDW (11.5-15.5) % Plt Count (150-450) k/uL MPV Neutrophils % (Manual) % Band Neuts % (Manual) % Lymphocytes % (Manual) % Monocytes % (Manual) % Eosinophils % (Manual) % Metamyelocytes % % Neutrophils # (Manual) (1.3-7.7) k/uL Lymphocytes # (Manual) (1.0-4.8) k/uL Monocytes # (Manual) (0-1.0) k/uL Eosinophils # (Manual) (0-0.7) k/uL Metamyelocytes # (Man) (0) k/uL Nucleated RBCs (0-0) /100 WBC Polychromasia Sodium (137-145) mmol/L Potassium (3.5-5.1) mmol/L Chloride (98-107) mmol/L Carbon Dioxide (22-30) mmol/L Anion Gap mmol/L BUN (9-20) mg/dL Creatinine (0.66-1.25) mg/dL Est GFR (CKD-EPI)AfAm (>60 ml/min/1.73 sqM) Est GFR (CKD-EPI)NonAf (>60 ml/min/1.73 sqM) Glucose (74-99) mg/dL Calcium (8.4-10.2) mg/dL Total Bilirubin (0.2-1.3) mg/dL AST (17-59) U/L ALT (4-49) U/L Alkaline Phosphatase (38-126) U/L Troponin I (0.000-0.034) ng/mL Total Protein (6.3-8.2) g/dL Albumin (3.5-5.0) g/dL Urine Color Light Yellow Urine Appearance Clear (Clear) Urine pH 5.5 (5.0-8.0) Ur Specific [place] 1.005 (1.001-1.035) Urine Protein Negative (Negative) Urine Glucose (UA) Negative (Negative) Urine Ketones Negative (Negative) Urine Blood Negative (Negative) Urine Nitrite Negative (Negative) Urine Bilirubin Negative (Negative) Urine Urobilinogen <2.0 (<2.0) mg/dL Ur Leukocyte Esterase Negative (Negative) Coronavirus (PCR) Not Detected (Not Detectd) - EKG Data -: EKG Interpreted by Me EKG shows normal: sinus rhythm Rate: normal EKG Comments: Ventricular rate 96 bpm, MN interval 134 ms, QRS duration 84 ms, QTC 409 ms, PRT axes 38/48/16. Normal sinus rhythm, normal ECG. - Radiology Data Radiology results: report reviewed, image reviewed Chest x-ray: No evidence for acute pulmonary process. Disposition Clinical Impression: Dehydration, Dizziness Disposition: HOME SELF-CARE Condition: Stable Instructions (If sedation given, give patient instructions): Dizziness (ED) Additional Instructions: Please return to the Emergency Department if symptoms worsen or any other concerns. Follow-up with primary care 1-2 days. Follow-up with cardiology as needed. Increase oral fluids. Is patient prescribed a controlled substance at d/c from ED?: No Referrals: Elin Olson DO [Primary Care Provider] - 1-2 days Mikael Meyer MD [STAFF PHYSICIAN] - 1-2 days Time of Disposition: 13:23
[2021-02-23 13:45] VITALS: BP 128/90; PULSE 84; TEMP 98.6
== END 2021-02-23 13:45 | disposition home or self-care (01) ==
LOC: EC 10:49
DX: E86.0 Dehydration (principal); R42 Dizziness and giddiness; F17.200 Nicotine dependence, unspecified, uncomplicated; J44.9 Chronic obstructive pulmonary disease, unspecified; I10 Essential (primary) hypertension; Z79.899 Other long term (current) drug therapy; Z20.822 Contact with and (suspected) exposure to COVID-19
CPT/HCPCS: 36415; 71046; 80053; 81003; 84484; 85025; 87635; 93005; 96360; 99284

== ENCOUNTER → 2023-10-09 | Outpatient (CLI) | payer OTHER ==
--- NOTE | 2023-10-09 13:17 | CTL ---
EXAMINATION TYPE: CT Low Dose Lung DATE OF EXAM: 10/09/2023 7:12 AM CLINICAL INDICATION:Male, 58 years old with history of Z12.2 encounter SCREEN FOR MALIGNANT NEOPLASM OF RESP; personal history of nicotine dependence , history of tobacco use. COMPARISON: None. TECHNIQUE: Multiple axial non-contrast scans were obtained from approximately the lung apices through the upper abdomen. Coronal and sagittal reformatted images were obtained. Low dose technique was uti lized. CT DLP: 3.2 mGycm, Automated exposure control for dose reduction was used. CT Contrast: Contrast used: None Oral contrast used: None FINDINGS: ======== Lack of intravenous contrast and low dose technique limits the evaluation of the vascular and soft ti ssue structures. LUNGS: No evidence of pulmonary fibrosis. No evidence of focal consolidation, pneumothorax or pleural effusion. Nodules: RUL: None. RML: None. RLL: None. NABIL: None. LLL: None. AIRWAY: Patent and unremarkable. HEART: Size within normal limits. MEDIASTINUM: No gross evidence of adenopathy. VASCULATURE: Ascending thoracic aorta is 42 mm in caliber MUSCULOSKELETAL: No acute osseous abnormalities SOFT TISSUES/LYMPH NODES: Unremarkable. LOWER NECK: No significant findings. UPPER ABDOMEN: No significant findings. IMPRESSION: 1. No clinically significant pulmonary nodules. CT LUNG RAD AND CT CHEST RECOMMENDATION: 1. Recommendation: Routine annual follow-up on the CT screen ing low dose S Modifier (other clinically significant findings): Ectatic thoracic aorta. Recommend smoking cessation (if current smoker), or continuation of smoking cessation (if prior smoke r). Annual screening for lung cancer with low-dose computed tomography is recommended in adults ages 55 to 77 years who have a 30 pack-year smoking history and currently smoke or have quit within the pa st 15 years. Screening should be discontinued once a person has not smoked for 15 years or develops a health problem that substantially limits life expectancy or the ability or willingness to have curat susan lung surgery. Lung rads 2021 [email or web address]
== END | disposition home or self-care (01) ==
LOC: RADCTMAIN 06:52
PROVIDERS: ATTEND Family Medicine
DX: Z12.2 Encounter for screening for malignant neoplasm of respiratory organs (principal); F17.210 Nicotine dependence, cigarettes, uncomplicated
CPT/HCPCS: 71271

== ENCOUNTER 2023-12-01 07:38 | Emergency (ER) | payer OTHER ==
[2023-12-01 07:45] VITALS: PULSE 80; RESP 18
[2023-12-01] MEDS: LIDOCAINE 4% PATCH TOPICAL STA (08:05)
--- NOTE | 2023-12-01 08:05 | ED ---
General Adult HPI - General Chief complaint: Extremity Injury, Upper Stated complaint: shoulder pain Time Seen by Provider: 12/01/23 07:50 Source: patient, RN notes reviewed, old records reviewed Mode of arrival: ambulatory Limitations: no limitations - History of Present Illness Initial comments: Patient is a 58-year-old male who presents emergency department complaining of left shoulder pain. Has been worse over the last 3 days. 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 He is left-handed. States the pain is over the posterior aspect of his left shoulder. Pinpoint in one of his muscles. Worse with movement of the left shoulder. Denies any chest pain or shortness of breath. Has no other symptoms. No obvious injuries. Does sleep on the left shoulder. Presents for further evaluation at this time. No sensory deficits. Denies any midline back pain. - Related Data Home Medications Medication Instructions Recorded Confirmed Aspirin [Adult Low Dose Aspirin EC] 81 mg PO DAILY 02/23/21 02/23/21 Lisinopril-Hctz 10-12.5 mg 1 tab PO DAILY 02/23/21 02/23/21 [Zestoretic 10-12.5] Allergies Allergy/AdvReac Type Severity Reaction Status Date / Time No Known Allergies Allergy Verified 12/01/23 07:45 Review of Systems ROS Statement: Those systems with pertinent positive or pertinent negative responses have been documented in the HPI. Review of Systems: CONST: Denies fever EYES: Denies blurry vision ENT: Denies nasal congestion C/V: Denies Chest pain RESP: Denies shortness of breath GI: Denies abdominal pain : Denies dysuria SKIN: Denies rash. MSK: Endorses shoulder pain NEURO: Denies headache ROS Other: All systems not noted in ROS Statement are negative. Past Medical History Past Medical History: COPD, Hypertension Additional Past Medical History / Comment(s): back pain History of Any Multi-Drug Resistant Organisms: None Reported Past Surgical History: Cholecystectomy, Orthopedic Surgery Additional Past Surgical History / Comment(s): cyst removed from hand. vascular surgery Past Psychological History: No Psychological Hx Reported Smoking Status: Current every day smoker Past Alcohol Use History: None Reported Past Drug Use History: None Reported General Exam - General Exam Comments Initial Comments: General: Appears in no acute distress. HEAD: Normal with no signs of head trauma. EYES: EOMI. ENT: Hearing grossly intact. RESPIRATORY: No respiratory distress. Clear breath sounds bilaterally. C/V: Regular rate and rhythm. ABD: Abdomen is nondistended. EXT: No obvious deformity. Normal range of motion of the left shoulder. Tenderness to palpation over the posterior trapezius or supraspinatus muscle. Worse with movements of the shoulder. Weakness during the empty can test due to pain in the posterior shoulder. Neurovascular intact in the left upper extremity. SKIN: No rashes or lesions observed on exposed skin. NEURO: Alert and oriented. Limitations: no limitations Course Vital Signs 12/01/23 07:42 Temperature 97.2 F L Pulse Rate 80 Respiratory 18 Rate Blood Pressure 148/98 O2 Sat by Pulse 98 Oximetry Medical Decision Making - Medical Decision Making Was pt. sent in by a medical professional or institution (AYDIN Mazariegos, [employer], urgent care, hospital, or correction...) When possible be specific @ -No Did you speak to anyone other than the patient for history (EMS, parent, family, police, friend...)? What history was obtained from this source @ -No Did you review nursing and triage notes (agree or disagree)? Why? @ -I reviewed and agree with nursing and triage notes Were old charts reviewed (outside hosp., previous admission, EMS record, old EKG, old radiological studies, urgent care reports/EKG's, correction records)? Report findings @ -No old charts were reviewed Differential Diagnosis (chest pain, altered mental status, abdominal pain women, abdominal pain men, vaginal bleeding, weakness, fever, dyspnea, syncope, headache, dizziness, GI bleed, back pain, seizure, CVA, palpatations, mental health, musculoskeletal)? @ -Differential Musculoskeletal Muscular strain, contusion, ligament sprain, fracture, arthritis, septic arthritis, bursitis, cellulitis, muscle spasm, nerve compression, DVT, arterial occlusion, herpes zoster, electrolyte abnormality, tumor.... This is not meant to be in all inclusive list EKG interpreted by me (3pts min.). @ -None done X-rays interpreted by me (1pt min.). @ -X-ray does reveal AC joint arthritis. No obvious traumatic injury. CT interpreted by me (1pt min.). @ -None done U/S interpreted by me (1pt. min.). @ -None done What testing was considered but not performed or refused? (CT, X-rays, U/S, labs)? Why? @ -None What meds were considered but not given or refused? Why? @ -None Did you discuss the management of the patient with other professionals (professionals i.e. , PA, SEAM STEAMER, lab, RT, psych nurse, social media director, machine stuffer, teacher, juvenile justice officer, case operator)? Give summary @ -No Was smoking cessation discussed for >3mins.? @ -No Was critical care preformed (if so, how long)? @ -No Were there social determinants of health that impacted care today? How? (Homelessness, low income, unemployed, alcoholism, drug addiction, transportation, low edu. Level, literacy, decrease access to med. care, care home, rehab)? @ -No Was there de-escalation of care discussed even if they declined (Discuss DNR or withdrawal of care, Hospice)? DNR status @ -No What co-morbidities impacted this encounter? (DM, HTN, Smoking, COPD, CAD, Cance r, CVA, ARF, Chemo, Hep., AIDS, mental health diagnosis, sleep apnea, morbid obesity)? @ -None Was patient admitted / discharged? Hospital course, mention meds given and route, prescriptions, significant lab abnormalities, going to OR and other pertinent info. @ -Based on the patient's presentation and physical exam, patient presents emergency department complaining of left shoulder pain. Seems to be musculoskeletal in nature and possible muscle strain or sprain of the supraspinatus or trapezius muscle. However we will obtain a left shoulder x- ray. Injury is atraumatic. Patient will be administered a lidocaine patch as well as a Tylenol 3 for pain. Vital signs within acceptable limits. X-ray negative for any acute bony traumatic injury, just arthritis. I updated the patient. Patient will be discharged home at this time with instructions of icing, rest. Recommend not sleeping on that shoulder. Likely a sprain or strain. I instructed the patient to follow up with their PCP in the next 1-3 days. I explained that the patient should return to the emergency department if they experience any worsening symptoms. Strict return precautions were discussed with the patient. The patient expressed understanding of these instructions. I answered all questions that the patient had. The patient was discharged home in good condition with their prescriptions and follow up information. Undiagnosed new problem with uncertain prognosis? @ -No Drug Therapy requiring intensive monitoring for toxicity (Heparin, Nitro, Insulin, Cardizem)? @ -No Were any procedures done? @ -No Diagnosis/symptom? @ -Left shoulder strain Acute, or Chronic, or Acute on Chronic? @ -Acute Uncomplicated (without systemic symptoms) or Complicated (systemic symptoms)? @ -Uncomplicated Side effects of treatment? @ -No Exacerbation, Progression, or Severe Exacerbation? @ -No Poses a threat to life or bodily function? How? (Chest pain, USA, NM, pneumonia, PE, COPD, DKA, ARF, appy, cholecystitis, CVA, Diverticulitis, Homicidal, Suicidal, threat to staff... and all critical care pts) @ -No Disposition Clinical Impression: Left shoulder strain Disposition: ADMITTED IP TO THIS HOSP Condition: Stable Instructions (If sedation given, give patient instructions): Rotator Cuff Injury (ED) Referrals: Elin Olson DO [Primary Care Provider] - 1-2 days Андрей Naylor DO [Doctor of Osteopathic Medicine] - 1-2 days Time of Disposition: 08:49
[2023-12-01] MEDS: Acetaminophen-Codeine 300-30mg TAB PO STA (08:06)
--- NOTE | 2023-12-01 08:39 | XR ---
EXAMINATION TYPE: XR shoulder complete 3 views LT DATE OF EXAM: 12/01/2023 Comparison: None Clinical History: 58-year-old male pain Findings: Mild to moderate degenerative change AC joint with mild joint space narrowing, marginal spurring, and capsular hypertrophy. Subacromial space is preserved. Small delineation of the greater tuberosity. N o acute fracture, subluxation, dislocation. Visualized left hemithorax is clear. Impression: [id number] AC joint OA. No acute osseous abnormality seen.
[2023-12-01] MEDS: ACET/COD 300 MG/30 MG STARTER PACK 6 TAB BTL PO STA (09:07)
[2023-12-01 09:11] VITALS: BP 141/82; TEMP 97.7
== END 2023-12-01 09:15 | disposition other institution (70) ==
LOC: EC 07:38
DX: S46.912A Strain of unspecified muscle, fascia and tendon at shoulder and upper arm level, left arm, initial encounter (principal); F17.200 Nicotine dependence, unspecified, uncomplicated; X58.XXXA Exposure to other specified factors, initial encounter; Y99.0 Civilian activity done for income or pay
CPT/HCPCS: 99283; 99284

== ENCOUNTER → 2024-08-05 | Outpatient (CLI) | payer OTHER ==
--- NOTE | 2024-08-05 09:20 | CT ---
EXAMINATION TYPE: CT soft tissue neck w con DATE OF EXAM: 08/05/2024 9:06 AM COMPARISON: None. CLINICAL INDICATION: Male, 58 years old with history of R49.9 VOICE AND RESONANCE DISORDER R49.0 DYSP HONIA; [facility], TECHNIQUE: CT scan of the neck is performed following with IV Contrast, patient injected with 100 mL of Isovue 3 00. Axial images are obtained, coronal and sagittal reformatted images are reviewed. CT DLP: [address] CTDI: 18.1 mGy Automated exposure control for dose reduction was used. FINDINGS: Airway: Mild to moderate underlying emphysematous change is present. Parotid/submandibular glands: No gross abnormality seen. Carotid/Vascular Structures: Mild to moderate peripheral plaque at bilateral carotid bulb level exten ding into proximal internal carotid arteries without significant stenosis . Osseous Structures: Slight grade 1 retrolisthesis C4 on C5 and C5 on C6 with moderate disc space narr owing at these levels. Other: No suspicious greater than 1 cm neck adenopathy identified bilaterally. The parapharyngeal fat spaces are maintained bilaterally. IMPRESSION: Source of patient's symptoms are not identified. [facility], , 08/05/2024 9:18 AM
== END | disposition home or self-care (01) ==
LOC: RADCTMAIN 08:31
PROVIDERS: ATTEND Family Medicine
DX: R49.9 Unspecified voice and resonance disorder (principal); R49.0 Dysphonia; R59.0 Localized enlarged lymph nodes
CPT/HCPCS: 70491; Q9967